=== PATIENT | male | born 1985 | race Caucasian/White ===

== ENCOUNTER 2022-03-31 04:37 | Emergency (ER) | payer SELFPAY ==
[~2022-03-31] VITALS: Ht 177.8 cm; Wt 118.2 kg
[2022-03-31 04:39] VITALS: BP 132/81
== END 2022-03-31 06:54 | disposition left against medical advice (07) ==
LOC: M ED 04:37
DX: Z53.29 Procedure and treatment not carried out because of patient's decision for other reasons (principal)

== ENCOUNTER 2022-10-03 17:19 | Observation (INO) | payer OTHER ==
[~2022-10-03] VITALS: Ht 177.8 cm; Wt 106.3 kg
[2022-10-03 19:34] LABS: BASO # 0.1 10^3/uL (0.0-0.2); BASO % 0.6 % (0.0-1.0); EOS # 0.2 10^3/uL (0.0-0.5); EOS % 2.3 % (0.0-3.0); HEMATOCRIT 44.2 % (42.0-52.0); HEMOGLOBIN 14.7 g/dl (13.5-17.5); LYMPH # 3.9 10^3/uL (1.5-5.0); LYMPH % 39.2 % (24.0-44.0); MEAN CORPUSCULAR HEMOGLOBIN 29.4 pg (27.0-33.0); MEAN CORPUSCULAR HGB CONC 33.3 g/dl (32.0-36.5); MEAN CORPUSCULAR VOLUME 88.4 fl (80.0-96.0); MONO # 0.7 10^3/uL (0.0-0.8); MONO % 6.9 % (2.0-8.0); NEUTROPHILS % 50.5 % (36.0-66.0); PLATELET COUNT, AUTOMATED 195 10^3/uL (150-450)
[2022-10-03] MEDS ORDERED: ISOVUE-370 76% 100ML VIAL As Ordered ONE (19:35)
[2022-10-03 19:44] LABS: INR 0.97; PROTHROMBIN TIME 13.1 SECONDS (12.5-14.5)
[2022-10-03 19:45] LABS: PARTIAL THROMBOPLASTIN TIME 29.6 SECONDS (24.8-34.2)
[2022-10-03 20:02] LABS: CK-MB VALUE MASS < 1.0 NG/ML (<3.6)
[2022-10-03 20:03] LABS: RSV AMPLIFICATION NEGATIVE (NEGATIVE)
[2022-10-03 20:04] LABS: BLOOD UREA NITROGEN 13 MG/DL (9-23); CALCIUM LEVEL 8.9 MG/DL (8.5-10.1); CARBON DIOXIDE LEVEL 32 MMOL/L (20-31); CHLORIDE LEVEL 107 MMOL/L (98-107); CREATININE FOR GFR 1.07 MG/DL (0.70-1.30); GLOMERULAR FILTRATION RATE > 60.0 (>60); GLUCOSE, FASTING 80 MG/DL (60-100); POTASSIUM SERUM 3.9 MMOL/L (3.5-5.1); SODIUM LEVEL 144 MMOL/L (136-145)
[2022-10-03 20:12] LABS: CPK CREATINE PHOSPHOKINASE 191 U/L (46-171); MB/CK RELATIVE INDEX 0.52 (< OR =4)
[2022-10-03] MEDS ORDERED: ASPIRIN 325 MG TAB PO ONE (20:15)
[2022-10-03] MEDS ORDERED: NICOTINE 21MG/24HR 1 EA TRANSDERMAL TD ONE ×2 (20:35→22:45)
[2022-10-03] MEDS ORDERED: FLON1SPR NARES (20:48)
[2022-10-03] MEDS ORDERED: BUSP15TA48 PO (20:48)
[2022-10-03] MEDS ORDERED: STRA18CA PO (20:48)
[2022-10-03] MEDS ORDERED: ASPI81TA26 PO (20:48)
[2022-10-03] MEDS ORDERED: VENTAER INH (20:48)
[2022-10-03] MEDS ORDERED: TRAZ-189 PO (20:48)
[2022-10-03] MEDS ORDERED: OMEG10002 PO (20:48)
[2022-10-03] MEDS ORDERED: ZOLO100T PO (20:48)
[2022-10-03] MEDS ORDERED: FLUT1BLS2 INH (20:48)
[2022-10-03] MEDS ORDERED: HYDR50TA70 PO (20:48)
[2022-10-03] MEDS ORDERED: ROSU20TA5 PO (20:48)
[2022-10-03] MEDS ORDERED: BACL10TA2 PO (20:48)
[2022-10-03] MEDS ORDERED: IBUP1TAB7 PO (20:48)
[2022-10-03] MEDS ORDERED: HOME MED LIST COMPLETE! XX SCH (20:50)
[2022-10-03] MEDS ORDERED: SERTRALINE 100 MG TAB PO SCH (21:00)
[2022-10-03] MEDS ORDERED: TETRACAINE 0.5% OPHTH SOLN 4ML OU ONE (21:30)
[2022-10-03] MEDS ORDERED: LABETALOL 100MG/20ML VIAL IV STA (22:30)
[2022-10-04] VITALS (8 sets, daily range): BP systolic 132–174; BP diastolic 75–113
[2022-10-04] MEDS ORDERED: ALBUTEROL 90 MCG/ACT 8GM HFA INHALER INH PRN (00:25)
[2022-10-04] MEDS ORDERED: BACLOFEN 10 MG TAB PO PRN (01:55)
[2022-10-04] MEDS ORDERED: ADVAIR HFA 115/21MCG INHALER INH SCH (08:00)
[2022-10-04] MEDS ORDERED: hydrOXYzine 50 MG TAB PO SCH (09:00)
[2022-10-04] MEDS ORDERED: ASPIRIN 81MG CHEW TABLET PO SCH (09:00)
[2022-10-04] MEDS ORDERED: busPIRone 5 MG TAB PO SCH (09:00)
[2022-10-04] MEDS ORDERED: ROSUVASTATIN 10 MG TAB (CRESTOR) PO SCH (21:00)
== END 2022-10-04 09:04 | disposition left against medical advice (07) ==
LOC: M ED 17:19 → M ED INP 17:20 → ENRESERV 10-04 00:53 → M ICU 10-04 01:35
PROVIDERS: ADMIT Internal Medicine; ATTEND Internal Medicine
DX: R29.810 Facial weakness (principal); H53.8 Other visual disturbances; R47.9 Unspecified speech disturbances; I10 Essential (primary) hypertension; Z86.73 Personal history of transient ischemic attack (TIA), and cerebral infarction without residual deficits; J45.909 Unspecified asthma, uncomplicated; M54.9 Dorsalgia, unspecified; G89.29 Other chronic pain; F41.9 Anxiety disorder, unspecified; E78.5 Hyperlipidemia, unspecified; Z79.899 Other long term (current) drug therapy; Z79.82 Long term (current) use of aspirin; F17.210 Nicotine dependence, cigarettes, uncomplicated
CPT/HCPCS: 70450; 70496; 70498; 70551; 71045; 80047; 80048; 82550; 82553; 84484; 85025; 85610; 85730; 87631; 93005; 93041; 94640; 94760; 99285; G0378; Q9967

== ENCOUNTER 2023-01-17 21:17 | Emergency (ER) | payer OTHER ==
[~2023-01-17] VITALS: Ht 177.8 cm; Wt 106.8 kg
[~2023-01-17 21:17] MED LIST: ASPI81TA26 PO; BACL10TA2 PO; BUSP15TA48 PO; FLON1SPR NARES; FLUT1BLS2 INH; HYDR50TA70 PO; IBUP1TAB7 PO; OMEG10002 PO; ROSU20TA5 PO; STRA18CA PO; TRAZ-189 PO; VENTAER INH; ZOLO100T PO
[2023-01-17] MEDS ORDERED: NS 1,000 ML IV ONE (22:20)
[2023-01-17 22:45] LABS: BASO # 0.1 10^3/uL (0.0-0.2); BASO % 0.6 % (0.0-1.0); EOS # 0.2 10^3/uL (0.0-0.5); EOS % 1.8 % (0.0-3.0); HEMATOCRIT 44.6 % (42.0-52.0); HEMOGLOBIN 14.5 g/dl (13.5-17.5); LYMPH # 3.1 10^3/uL (1.5-5.0); MEAN CORPUSCULAR HEMOGLOBIN 28.7 pg (27.0-33.0); MEAN CORPUSCULAR HGB CONC 32.5 g/dl (32.0-36.5); MEAN CORPUSCULAR VOLUME 88.1 fl (80.0-96.0); MONO # 1.1 10^3/uL (0.0-0.8); MONO % 10.5 % (2.0-8.0); NEUTROPHILS # 5.8 10^3/uL (1.5-8.5); NEUTROPHILS % 56.8 % (36.0-66.0); PLATELET COUNT, AUTOMATED 187 10^3/uL (150-450); RED BLOOD COUNT 5.06 10^6/uL (4.30-6.10); WHITE BLOOD COUNT 10.2 10^3/uL (4.0-10.0)
[2023-01-17 23:07] LABS: LIPASE 21 U/L (12-53)
[2023-01-17 23:09] LABS: ALBUMIN 3.9 G/DL (3.2-5.2); ALKALINE PHOSPHATASE 67 U/L (46-116); ALT/SGPT 46 U/L (7.0-40); AST/SGOT 27 U/L (<34); BILIRUBIN,DIRECT 0.2 MG/DL (<0.4); BILIRUBIN,TOTAL 0.5 MG/DL (0.3-1.2); BLOOD UREA NITROGEN 21 MG/DL (9-23); CARBON DIOXIDE LEVEL 29 MMOL/L (20-31); CHLORIDE LEVEL 104 MMOL/L (98-107); CREATININE FOR GFR 1.14 MG/DL (0.70-1.30); GLOMERULAR FILTRATION RATE > 60.0 (>60); GLUCOSE, FASTING 88 MG/DL (60-100); POTASSIUM SERUM 3.8 MMOL/L (3.5-5.1); SODIUM LEVEL 140 MMOL/L (136-145); TOTAL PROTEIN 7.1 G/DL (5.7-8.2)
[2023-01-17] MEDS ORDERED: ISOVUE-370 76% 100ML VIAL As Ordered ONE (23:13)
[2023-01-18] MEDS ORDERED: PIPERACILLIN/TAZOBACTAM SOD 4.5 GM in D5W MINI-BAG PLUS 50 ML IV ONE (00:40)
[2023-01-18] MEDS ORDERED: AMOX875T2 PO (00:54)
[2023-01-18 01:02] VITALS: BP 140/76
== END 2023-01-18 01:34 | disposition home or self-care (01) ==
LOC: M ED 21:17
DX: K57.32 Diverticulitis of large intestine without perforation or abscess without bleeding (principal); F90.9 Attention-deficit hyperactivity disorder, unspecified type; E78.5 Hyperlipidemia, unspecified; I45.6 Pre-excitation syndrome; F43.10 Post-traumatic stress disorder, unspecified; J45.909 Unspecified asthma, uncomplicated; Z79.51 Long term (current) use of inhaled steroids; Z79.82 Long term (current) use of aspirin; Z79.899 Other long term (current) drug therapy
CPT/HCPCS: 74177; 80048; 80076; 83605; 83690; 85025; 96365; 99284; J2543; Q9967

== ENCOUNTER → 2023-04-30 | Outpatient (REF) | payer OTHER ==
[~2023-04-30] MED LIST changes: +AMOX875T2 PO; -ROSU20TA5 PO; +ROSU20TA61 PO
== END ==
LOC: M LAB REF 09:52
PROVIDERS: ATTEND Physician Assistant Medical
DX: J02.9 Acute pharyngitis, unspecified (principal)

== ENCOUNTER 2023-07-03 07:14 | Day surgery (SDC) | payer OTHER ==
[~2023-07-03] VITALS: Ht 177.8 cm; Wt 94.3 kg
[~2023-07-03 07:14] MED LIST changes: +NS 1,000 ML IV ONE
[2023-07-03] MEDS ORDERED: propofoL 200 MG/20 ML VIAL As Ordered ONE (08:39)
[2023-07-03] MEDS ORDERED: LIDOCAINE 2% 100MG/5ML SDV (FOR ANES.) As Ordered ONE (08:39)
[2023-07-03 09:20] VITALS: TEMP 98.1
[2023-07-03 09:40] VITALS: BP 137/88; O2SAT 99
== END 2023-07-03 09:45 | disposition home or self-care (01) ==
LOC: M OPP 07:14
PROVIDERS: ATTEND Internal Medicine Gastroenterology
DX: K57.30 Diverticulosis of large intestine without perforation or abscess without bleeding (principal); D12.0 Benign neoplasm of cecum; D12.2 Benign neoplasm of ascending colon; D12.5 Benign neoplasm of sigmoid colon; K64.8 Other hemorrhoids; I45.6 Pre-excitation syndrome; J45.909 Unspecified asthma, uncomplicated; G47.30 Sleep apnea, unspecified; Z86.73 Personal history of transient ischemic attack (TIA), and cerebral infarction without residual deficits; Z79.82 Long term (current) use of aspirin; Z79.899 Other long term (current) drug therapy; Z87.891 Personal history of nicotine dependence

== ENCOUNTER → 2023-11-29 | Outpatient (REF) | payer OTHER ==
[~2023-11-29] MED LIST changes: -NS 1,000 ML IV ONE
[2023-11-29 09:16] LABS: SEMEN APPEARANCE OPAQUE (OPAQUE); SEMEN VISCOSITY VISCOUS (LIQUID); SEMEN pH 8.5 (7.0-8.0); WBC CONCENTRATION <=1 M/ml (<=1 M/ml)
== END ==
LOC: M LAB REF 08:53
PROVIDERS: ATTEND Student in an Organized Health Care Education/Training Program
DX: Z98.52 Vasectomy status (principal)